=== PATIENT | male | born 2005 | race Caucasian/White ===

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

== ENCOUNTER 2024-01-03 15:42 | Emergency (ER) | payer OTHER, SELFPAY ==
--- NOTE | ~2024-01-03 | XR_ITS ---
EXAMINATION: XR chest 2V DATE: 01/03/2024 16:34 INDICATION: Cough. TECHNIQUE: Frontal and lateral views of the chest were obtained. COMPARISON: Chest 2 views 02/03/2021 FINDINGS: There is no pneumonia, pleural effusion, or pneumothorax. The heart size is normal. IMPRESSION: 1. No acute cardiopulmonary disease. Reviewed, dictated and finalized at location A. 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
[2024-01-03 15:52] VITALS: BP 120/75; PULSE 93; RESP 16; TEMP 37.2; O2SAT 98
--- NOTE | 2024-01-03 16:23 | ED.URI ---
HPI - URI/Sore Throat General Chief Complaint: Upper Respiratory Infection Stated Complaint: flu like symptoms Time Seen by Provider: 01/03/24 16:24 Source: patient and RN notes reviewed Mode of arrival: ambulatory Limitations: other (Developmental delay) History of Present Illness HPI Narrative: 18-year-old male with developmental delay presents with concern for flu-like symptoms. Reports stuffy nose, runny nose, cough. Father reports he has had chills sweats. MD elicited complaint: cough and nasal congestion Related Data Allergies Allergy/AdvReac Type Severity Reaction Status Date / Time No Known Allergies Allergy Verified 01/03/24 16:21 Review of Systems Review of Systems: CONSTITUTIONAL: Reports malaise, chills, sweats EYES: Denies visual changes, redness, or discharge. ENT: Reports rhinorrhea, congestion CARDIOVASCULAR: Denies chest pain, palpitations, or edema. RESPIRATORY: Reports cough. Denies dyspnea. GASTROINTESTINAL: Denies abdominal pain, nausea, vomiting, diarrhea SKIN: Denies rash or itching. MUSCULOSKELETAL: Denies myalgia. NEUROLOGIC: Denies headache. All systems reviewed & are unremarkable except as noted in HPI and below PMFSH Past Medical History Medical History Major depressive disorder Selective mutism Social History Social History Smoking status: Never smoker Lack of Transportation: No Lack of Food: Never True Current Housing: I Have Housing Concerned About Future Housing: No Difficulty Paying Gas/Electric Bills: No Difficulty Paying for Meds: No Currently Unemployed: No Education: Don't Know Difficulty w/ Childcare or Family Care: No Comments At time of signature, agree with nursing past medical, surgical, social and family history. There is no relevant family history pertinent to the presenting complaint Exam Narrative: GENERAL: Nontoxic-appearing, well-nourished, and in no acute distress. HEAD: Normocephalic EYES: PERRLA, conjunctivae clear ENT: Nares clear. Mucous membranes moist. TM pearly talley with dull light reflex bilaterally; no tragal tenderness. Oropharynx not erythematous without lesions. Tonsils not enlarged and without exudate, no drooling, no hoarseness, no trismus, uvula midline. NECK: Supple. No lymphadenopathy CHEST: Clear to auscultation, breath sounds equal. No wheezing, rhonchi, rales, or stridor. No respiratory distress, speaks in full sentences. HEART: Regular rate and rhythm. No murmur heard. SKIN: Warm, dry, no rash. NEURO: Alert and oriented x3. PSYCH: Normal mood and affect Course Course Emergency Course: Patient is aware of diagnosis, understands and agrees to treatment plan. Anticipatory guidance given. Patient agrees to follow-up as directed and is aware of reasons to seek care at the emergency department. Portions of this record may have been created with voice recognition software Level of Care: Express Care Visit Vital Signs Vital signs: Vital Signs Temperature 99 F 01/03/24 15:52 Pulse Rate 93 01/03/24 15:52 Respiratory Rate 16 01/03/24 15:52 Blood Pressure 120/75 01/03/24 15:52 Pulse Oximetry 98 01/03/24 15:52 Temperature 99 F 01/03/24 15:52 Pulse Rate 93 01/03/24 15:52 Respiratory Rate 16 01/03/24 15:52 Blood Pressure 120/75 01/03/24 15:52 Pulse Oximetry 98 01/03/24 15:52 Reviewed. MDM - URI/Sore Throat MDM Narrative Medical decision making narrative: Differential diagnosis considered: Smith virus, strep pharyngitis, allergic rhinitis, upper respiratory tract infection, sinusitis, rhinosinusitis, nasopharyngitis. viral pharyngitis, otitis media, otitis externa, pneumonia, bronchitis, viral cough syndrome, viral syndrome, and influenza. Exam findings show no acute concerns or changes; patient is non-toxic appearing and is in no distress. Patient is appropriate for outpatient treatment and follow-up. Lab Data Attestation: I reviewed the patient's lab results. Imaging Data My impression: Images reviewed, interpreted by radiologist, agree, see report. Radiologist's impression: EXAMINATION: XR chest 2V DATE: 01/03/2024 16:34 INDICATION: Cough. TECHNIQUE: Frontal and lateral views of the chest were obtained. COMPARISON: Chest 2 views 02/03/2021 FINDINGS: There is no pneumonia, pleural effusion, or pneumothorax. The heart size is normal. IMPRESSION: 1. No acute cardiopulmonary disease. Critical Care Time Critical Care Time Critical Care Time: No Discharge Plan Discharge Clinical Impression: Viral illness Patient Disposition: Home, Self-Care Condition: Stable Instructions: Viral Syndrome (ED) Additional Instructions: Your rapid COVID and flu tests are negative Your chest x-ray is normal -Take strict precautions to prevent the spread of your virus. Be diligent about covering your cough (even when you are alone) and washing your hands frequently. -You may contagious until you have been symptom and/or fever free for 24 hours without fever reducing medicine -Alternate Ibuprofen and Tylenol for pain and fever relief (per package directions) -Drink plenty of fluid - drink fluid with electrolytes such as Gatorade or other oral re-hydration solution. Avoid caffeine, which can make dehydration worse. -Get plenty of rest to help your body heal. -Use a cool mist humidifier for chest and nasal congestion. -Eat RAW honey or use cough drops to ease throat discomfort -Do not smoke or expose children to secondhand smoke -Wash your hands frequently. -Please follow-up with your primary care doctor in the next 1-2 days if your symptoms do not improve. -If you have any worsening of symptoms or any other concerns please go to the ED immediately. -Please take medications as prescribed and continue taking your home medications as usual. Prescriptions: New dextromethorphan-guaifenesin [Mucinex DM] 60-1,200 mg tablet extended release 12 hr 1 tablet PO Q12H Qty: 12 0RF No Action sertraline 50 mg tablet 50 mg PO DAILY Qty: 90 1RF hydroxyzine HCl 25 mg tablet 25 mg PO BID PRN (Reason: anxiety) Qty: 180 1RF Follow-up/Referrals: UNKNOWN,DOCTOR [Primary Care Provider] - Time of Disposition: 16:49
[2024-01-03 16:26] LABS: EDCOVIDSCREEN Negative (Negative); EDINFLUASCREEN Negative (Negative); EDINFLUBSCREEN Negative (Negative)
== END 2024-01-03 16:51 | disposition home or self-care (01) ==
PROVIDERS: Emergency Provider Nurse Practitioner
DX: B34.9 Viral infection, unspecified (principal); Z20.822 Contact with and (suspected) exposure to COVID-19; F94.0 Selective mutism; F32.9 Major depressive disorder, single episode, unspecified
CPT/HCPCS: 71046; 87426; 87804; 99213; G0463

== ENCOUNTER 2024-01-12 21:25 | Emergency (ER) | payer OTHER, SELFPAY ==
[2024-01-12] VITALS (8 sets, daily range): BP systolic 115–144; BP diastolic 59–95; PULSE 107–117; RESP 18–51; TEMP 36.6; O2SAT 24–94
--- NOTE | ~2024-01-12 | XR_ITS ---
EXAMINATION: XR chest 1V portable Exam Date/Time: 01/12/2024 21:49 [employer] HISTORY: chest pain/ NAUSEA VOMITTING Comparison: 01/03/2024. RESULT: Lines, tubes, and devices: None. Lungs and pleura: Leftward rotation. Clear lungs. Cardiomediastinal silhouette: Stable. Other: No acute osseous or upper abdominal finding. IMPRESSION: No acute cardiopulmonary process. Reviewed, dictated and finalized at location K. [employer] WORK[employer]
[2024-01-12 22:01] LABS: Basophils Absolute Auto 0.1 K/mm3 (0.0-0.1); Basophils Percent Auto 0.6 % (0.2-1.2); Eosinophils Absolute Auto 0.2 K/mm3 (0-0.3); Eosinophils Percent Auto 2.2 % (0-4.4); Hematocrit 40.4 % (42.0-52.0); Hemoglobin 14.1 g/dL (14.0-18.0); Immature Granulocyte Absolute 0.03 K/mm3 (0.00-0.031); Immature Granulocyte Percent A 0.3 % (0-0.5); Immature Platelet Fraction Pct 4.7 % (0.9-11.2); Lymphocytes Percent Auto 24.9 % (18.3-44.2); Mean Corpuscular HGB Conc 34.9 g/dl (32-36); Mean Corpuscular Hemoglobin 32.1 pg (26-34); Monocytes Absolute Auto 0.6 K/mm3 (0.1-0.6); Neutrophils Absolute Auto 6.7 K/mm3 (1.3-6.7); Platelet Count Result 340 k/mm3 (150-375); Red Blood Count 4.39 M/mm3 (4.6-6.20); Red Cell Distribution Width 13.2 % (11.5-14.5); White Blood Count 10.1 K/mm3 (4.5-10.0)
[2024-01-12 22:04] LABS: Alanine Aminotransferase 46 U/L (6-50); Albumin Level 4.7 g/dL (3.7-5.6); Alkaline Phosphatase 79 U/L (58-237); Anion Gap 12 mmol/L (4-12); Aspartate Amino Transferase 41 U/L (17-59); Bilirubin,Total 0.8 mg/dL (0.2-1.3); Blood Urea Nitrogen 9 mg/dL (8-21); Carbon Dioxide 29 mmol/L (22-30); Chloride 95 mmol/L (98-107); Estimated CRCL calculation 149 ml/min; Estimated Glomerular Filt Rate > 60; Glucose 117 mg/dL (65-110); Lipase 57 U/L (23-300); Potassium 3.6 mmol/L (3.4-5.0); Sodium 136 mmol/L (134-143)
--- NOTE | 2024-01-12 22:20 | ED_ITS ---
[facility] - General Adult General Chief complaint: Nausea/Vomiting/Diarrhea Stated complaint: N/V, cough Time Seen by Provider: 01/12/24 21:53 Source: patient Mode of arrival: ambulatory Limitations: no limitations History of Present Illness HPI narrative: this is an 18-year-old male with PMH of ADHD and selective mutism who presents to the ED for chief complaint of cough, nausea and vomiting over the past week. Reports the cough is productive. Family is bedside and supplementing the history. Patient states he has been very nauseous and had multiple episodes of vomiting. Mom thinks that he is having a lot of posttussive emesis. She reports yellow sputum production. Taking Robitussin DM and NyQuil with no relief. Denies fevers, chills, chest pain, abdominal pain, headache. Mom states the entire family has had pneumonia over the past week. Related Data Allergies Allergy/AdvReac Type Severity Reaction Status Date / Time No Known Allergies Allergy Verified 01/03/24 16:21 Review of Systems Review of Systems: All systems as dictated in [facility] Past Medical History Medical History Major depressive disorder Selective mutism Social History Social History Smoking status: Never smoker Lack of Transportation: No Lack of Food: Never True Current Housing: I Have Housing Concerned About Future Housing: No Difficulty Paying Gas/Electric Bills: No Difficulty Paying for Meds: No Currently Unemployed: No Education: Don't Know Difficulty w/ Childcare or Family Care: No Exam Narrative: GENERAL: Well-appearing, well-nourished, and in no acute distress. HEAD: Normocephalic, atraumatic. EYES: PERRLA and EOMI. ENT: Nares clear, no rhinorrhea or epistaxis. Mucous membranes moist. Oropharynx without tonsillar hypertrophy exudate or other lesions. NECK: Supple. No adenopathy or masses. CHEST: No respiratory distress. Saturating 91% room air. Crackles heard bilaterally. HEART: Regular rate and rhythm. No murmur heard. Normal peripheral pulses. ABDOMEN: Soft, nontender, nondistended, normal active bowel sounds. MSK: Normal range of motion. No edema. SKIN: Warm, dry, no rash. NEURO: Alert and oriented x4. No focal deficits. PSYCH: Normal mood and affect. Course Vital Signs Vital signs: Vital Signs Temperature 97.8 F 01/12/24 21:27 Pulse Rate 112 H 01/12/24 21:27 Respiratory Rate 20 01/12/24 21:27 Blood Pressure 144/68 H 01/12/24 21:27 Pulse Oximetry 94 01/12/24 21:27 Oxygen Delivery Room Air 01/12/24 21:27 Temperature 97.8 F 01/12/24 21:27 Pulse Rate 107 H 01/12/24 22:31 Respiratory Rate 26 H 01/12/24 22:31 Blood Pressure 124/67 01/12/24 22:31 Pulse Oximetry 92 01/12/24 23:42 Oxygen Delivery Nasal Cannula 01/12/24 23:42 Oxygen Flow Rate 1 01/12/24 23:42 Medical Decision Making MDM Narrative Medical decision making narrative: This is a 18 yo male who presents to the ED for chief complaint of productive cough and N/V. Vitals show mild tachycardia but otherwise normal. Afebrile. Exam shows crackles heard in the lungs bilaterally. Saturating 92% room air. Lab work shows mildly elevated white count of 10.1. CMP unremarkable. Chest x-ray today does not show acute findings. However clinically this presentation is most consistent with pneumonia, especially given close proximity to recent sick family members. Patient was given 2 L of fluids, Rocephin and azithromycin for community- acquired pneumonia. Patient will be discharged in stable condition. Supportive measures discussed and return precautions given. Patient is understanding and agreeable with plan for discharge with PCP follow-up. Vital Signs Vital Signs: Vital Signs Temperature 97.8 F 01/12/24 21:27 Pulse Rate 112 H 01/12/24 21:27 Respiratory Rate 20 01/12/24 21:27 Blood Pressure 144/68 H 01/12/24 21:27 Pulse Oximetry 94 01/12/24 21:27 Oxygen Delivery Room Air 01/12/24 21:27 Temperature 97.8 F 01/12/24 21:27 Pulse Rate 107 H 01/12/24 22:31 Respiratory Rate 26 H 01/12/24 22:31 Blood Pressure 124/67 01/12/24 22:31 Pulse Oximetry 92 01/12/24 23:42 Oxygen Delivery Nasal Cannula 01/12/24 23:42 Oxygen Flow Rate 1 01/12/24 23:42 Lab Data 01/12/24 21:38 01/12/24 21:38 Labs: Lab Results 01/12/24 01/12/24 Range/Units 21:38 23:20 WBC 10.1 H (4.5-10.0) K/mm3 RBC 4.39 L (4.6-6.20) M/mm3 Hgb 14.1 (14.0-18.0) g/dL Hct 40.4 L (42.0-52.0) % MCV 92.0 (80-100) fl MCH 32.1 (26-34) pg MCHC 34.9 (32-36) g/dl RDW 13.2 (11.5-14.5) % Plt Count 340 (150-375) k/mm3 MPV 10.0 (7.4-10.4) fl Immature Gran % (Auto) 0.3 (0-0.5) % Neut % (Auto) 66.0 (45.5-73.1) % Lymph % (Auto) 24.9 (18.3-44.2) % Kimball % (Auto) 6.0 (2.6-8.5) % Eos % (Auto) 2.2 (0-4.4) % Baso % (Auto) 0.6 (0.2-1.2) % Lymph # (Auto) 2.50 (0.9-3.2) K/mm3 Kimball # (Auto) 0.6 (0.1-0.6) K/mm3 Eos # (Auto) 0.2 (0-0.3) K/mm3 Baso # (Auto) 0.1 (0.0-0.1) K/mm3 Abs Immat Gran (auto) 0.03 (0.00-0.031) K/mm3 Absolute Neuts (auto) 6.7 (1.3-6.7) K/mm3 Absolute Nucleated RBC 0.000 (0.0-0.012) K/mm3 Nucleated RBC % 0.0 (0.0-0.2) % % Immature Plt Fraction 4.7 (0.9-11.2) % Sodium 136 (134-143) mmol/L Potassium 3.6 (3.4-5.0) mmol/L Chloride 95 L (98-107) mmol/L Carbon Dioxide 29 (22-30) mmol/L Anion Gap 12 (4-12) mmol/L BUN 9 (8-21) mg/dL Creatinine 0.90 (0.7-1.3) mg/dL Estim Creat Clear Calc 149 ml/min Estimated GFR > 60 (59 - ) Glucose 117 H (65-110) mg/dL Calcium 10.0 (8.9-10.7) mg/dL Total Bilirubin 0.8 (0.2-1.3) mg/dL AST 41 (17-59) U/L ALT 46 (6-50) U/L Alkaline Phosphatase 79 (58-237) U/L Total Protein 9.0 H (6.3-8.6) g/dL Albumin 4.7 (3.7-5.6) g/dL Lipase 57 (23-300) U/L Urine Color Yellow (Yellow) Urine Appearance Clear (Clear) Urine pH 7.0 (5.0-9.0) Ur Specific [place] 1.003 (1.001-1.035) Urine Protein Negative (Negative) mg/dL Urine Glucose (UA) Negative (Negative) mg/dL Urine Ketones Negative (Negative) mg/dL Ur Blood (Man) Negative (Negative) Urine Nitrate Negative (Negative) Urine Bilirubin Negative (Negative) Urine Urobilinogen 0.2 (<2.0) mg/dL Leukocyte Esterase Rfl Negative (Negative) IRENA/UL Discharge Plan Discharge Clinical Impression: Pneumonia Patient Disposition: Home, Self-Care Condition: Stable Instructions: Antibiotic Form Additional Instructions: Exam today is concerning for pneumonia. Please take antibiotics as prescribed and follow-up with PCP the next 3-5 days. Take Tylenol and ibuprofen as needed for pain and fevers. If you have any new or worsening symptoms please return to the ER for further evaluation. Prescriptions: New amoxicillin-pot clavulanate 875-125 mg tablet 1 tablet PO Q12H Qty: 14 0RF doxycycline hyclate 100 mg capsule 100 mg PO BID 7 Days Qty: 14 0RF No Action dextromethorphan-guaifenesin [Mucinex DM] 60-1,200 mg tablet extended release 12 hr 1 tablet PO Q12H Qty: 12 0RF sertraline 50 mg tablet 50 mg PO DAILY Qty: 90 1RF hydroxyzine HCl 25 mg tablet 25 mg PO BID PRN (Reason: anxiety) Qty: 180 1RF Follow-up/Referrals: Lazara Zamora [employer] EDUCATION TE[employer]ING ASSISTANT-C [Primary Care Provider] - Time of Disposition: 23:50
[2024-01-12] MEDS: SODIUM CHLORIDE 0.9% IV 1,000 ML 999 ML IV CONT ×2 (22:24→23:19)
[2024-01-12] MEDS: METOCLOPRAMIDE HCL INJ 10 MG/2 ML VIAL IV PUSH (23:04)
[2024-01-12] MEDS: diphenhydrAMINE HCl INJ 50 MG/ML VIAL 25 MG IV PUSH (23:04)
[2024-01-12] MEDS: AZITHROMYCIN 500 MG/NS 250 ML 500 MG/250 ML BAG 250 MG IVPB (23:07)
--- NOTE | 2024-01-12 23:08 | PC.NURSE ---
pt mother notified this rn that patient seemed to have a rash on the right sided upper arm after the initation and completion of rocephin. this rn notified saritha bartholomew.
[2024-01-12] MEDS: ACETAMINOPHEN/CODEINE (*CRX) 300/30 MG TABLET 1 TAB PO (23:19)
[2024-01-12 23:27] LABS: Add Urine Microscopic? NO; Appearance Urine Clear (Clear); Bilirubin Urine Negative (Negative); Blood Urine Negative (Negative); Color Urine Yellow (Yellow); Glucose Urine UA Negative (Negative); Ketones Urine Negative (Negative); Leukocyte Esterase Ur Negative LEU/UL (Negative); Nitrate Urine Negative (Negative); Protein Urine Negative (Negative); Specific Grav Ur 1.003 (1.001-1.035); Urobilinogen Urine 0.2 mg/dL (<2.0)
[2024-01-13 00:05] VITALS: BP 133/61; PULSE 90; RESP 25; O2SAT 90
== END 2024-01-13 01:25 | disposition home or self-care (01) ==
PROVIDERS: Emergency Medicine; Emergency Provider Physician Assistant; PCP Nurse Practitioner Family
DX: J18.9 Pneumonia, unspecified organism (principal); F90.9 Attention-deficit hyperactivity disorder, unspecified type; F94.0 Selective mutism
CPT/HCPCS: 36415; 71045; 80053; 81003; 83690; 85025; 85055; 96365; 96367; 96375; 99284; A9270; J0456; J0696; J1200; J2765; J7030